=== PATIENT | male | born 1995 | race Two or more races ===

== ENCOUNTER 2017-03-05 08:58 | Emergency (ER) | payer OTHER ==
[2017-03-05 09:04] VITALS: BP 143/82; PULSE 89; RESP 16; TEMP 97.5; O2SAT 97
--- NOTE | 2017-03-05 09:23 | EDPHY ---
H & P Stated Complaint: "stomach regurgitation" x 3 days, epigastric burning Time Seen by Provider: 03/05/17 09:04 HPI/ROS: CHIEF COMPLAINT: "Reflux since February 15" HISTORY OF PRESENT ILLNESS: 21-year-old male [employer] student states that when he was visiting his home country of [place] in late January he began experiencing esophageal reflux like symptoms. He saw a physician at that time, had laboratory studies performed which were normal, started on proton pump inhibitor. He has been taking his proton pump inhibitor intermittently and notes that his symptoms continue. He has made dietary recommendations. He denies: Nausea, vomiting, abnormal bowel movements, melena , hematochezia, abnormal or change in urinary habits, radiation of pain, back pain, flank pain, chest pain, or testicular pain. He is currently asymptomatic. He has an upcoming appointment at [facility] in 5 days REVIEW OF SYSTEMS: A ten point review of systems was performed and is negative with the exception of the items mentioned in the HPI Past medical history: None, no history of abdominal surgeries Social history: No alcohol use, nonsmoker PHYSICAL EXAM (Prior to examination, patient consented to physical exam, hands were washed and my usual and customary physical exam procedures followed) 1) GENERAL: Well-developed, well-nourished, alert and oriented. Appears anxious 2) HEAD: Normocephalic, atraumatic 3) HEENT: Pupils equal, round, reactive to light bilaterally. Sclera anicteric. Nasopharynx, oropharynx, clear, no lesions. Moist mucous membranes 4) NECK: Full range of motion, no meningeal signs. 5) LUNGS: Clear auscultation bilaterally, no wheezes, no rhonchi, no retractions. 6) HEART: Regular rate and rhythm, no murmur, no heave, no gallop. 7) ABDOMEN: No guarding, no rebound, no focal tenderness, negative McBurney's, negative Mcneill's, negative Rovsing's, negative peritoneal sign, I am unable to elicit any abdominal pain on exam 8) MUSCULOSKELETAL: Moving all extremities, no focal areas of tenderness, no obvious trauma. No peripheral edema or discoloration. 9) BACK: No CVA tenderness, no midline vertebral tenderness, no fluctuance, no step-off, no obvious trauma, no visual or palpable abnormality. 10) SKIN: No rash, no petechiae. 11) Psychiatric: Patient is oriented X 3, there is no agitation. DIFFERENTIAL DIAGNOSIS: In no particular order, including but not limited to biliary colic, cholecystitis, peptic ulcer disease, pancreatitis, and gastroenteritis. This is a partial list of diagnoses considered. These considerations are based on history, physical exam, past history and reassessment. - Personal History Current Tetanus/Diphtheria Vaccine: Unsure Current Tetanus Diphtheria and Acellular Pertussis (TDAP): Unsure - Medical/Surgical History Hx Asthma: No Hx Chronic Respiratory Disease: No Hx Diabetes: No Hx Cardiac Disease: No Hx Renal Disease: No Hx Cirrhosis: No Hx Alcoholism: No Hx HIV/AIDS: No Hx Splenectomy or Spleen Trauma: No Other PMH: gerd - Social History Smoking Status: Never smoked Constitutional: Initial Vital Signs Temperature (C) 36.4 C 03/05/17 09:01 Heart Rate 89 03/05/17 09:01 Respiratory Rate 16 03/05/17 09:01 Blood Pressure 143/82 H 03/05/17 09:01 O2 Sat (%) 97 03/05/17 09:01 O2 Delivery Mode Room Air Allergies/Adverse Reactions: No Known Allergies Allergy (Verified 10/17/15 01:09) Home Medications: Medication Instructions Recorded [facility] 03/05/17 Ranitidine HCl [Zantac 75] 75 mg PO BID #15 tablet 03/05/17 Medical Decision Making ED Course/Re-evaluation: 9:23 a.m.: This patient currently appears well, is asymptomatic, has abdomen which is soft no guarding no rebound no focal tenderness. At this time doubt acute surgical abdominal pathology. He has an upcoming appoint with [facility] in 5 days. Recommend he keep this appointment. He has been intermittently compliant with his proton pump inhibitor. I stressed the importance of taking meds regularly. I am also adding Zantac to his medication regimen. We discussed dietary recommendations. At time I do not think that diagnostic studies, imaging, laboratory studies are currently indicated. Usual and customary abdominal options and instructions provided. Care of patient under supervision of secondary supervising physician Dr Yoo Departure - Departure Disposition: Home, Routine, Self-Care Clinical Impression: Esophageal reflux Qualifiers: Esophagitis presence: with esophagitis Qualified Code(s): K21.0 - Gastro- esophageal reflux disease with esophagitis Condition: Good Instructions: Diet for Stomach Ulcers and Gastritis (ED), Gastroesophageal Reflux Disease (ED), Esophagitis (ED) Additional Instructions: If you develop new or worsening symptoms return to the ER, follow the dietary guidelines that we cast, take your medicine as directed. Referrals: Keep, your appointment with Gastroenterology in 5 days [Other] - As per Instructions Prescriptions: Ranitidine HCl [Zantac 75] 75 mg PO BID #15 tablet
== END 2017-03-05 09:39 | disposition home or self-care (01) ==
DX: K21.0 Gastro-esophageal reflux disease with esophagitis (principal)

== ENCOUNTER → 2018-02-08 | Outpatient (CLI) | payer OTHER | LOC: FCPNEURO 21:00 | PROVIDERS: ATTEND Student in an Organized Health Care Education/Training Program | DX: G47.00 Insomnia, unspecified (principal) ==